=== PATIENT | male | born 1980 | race Caucasian/White ===

== ENCOUNTER 2020-03-10 13:33 | Emergency (ER) | payer OTHER ==
[~2020-03-10] VITALS: Ht 177.8 cm; Wt 84.4 kg
--- NOTE | 2020-03-10 13:57 | NUR ---
PT IS IN ROOM #2A. DR WEBER EVALUATED THE PT.
[2020-03-10] MEDS ORDERED: LIDOCAINE 1%-EPI 1:100,000 20 ML VIAL ONE (14:13)
[2020-03-10] MEDS: LIDOCAINE 1%-EPI 1:100,000 20 ML VIAL TP ONE (14:17)
--- NOTE | 2020-03-10 16:01 | NUR ---
PT WAS D/C'd TO HOME. D/C INSTRUCTIONS GIVEN TO THE PT BY DR WEBER.
[2020-03-10 16:02] VITALS: BP 134/81
== END 2020-03-10 16:03 | disposition home or self-care (01) ==
LOC: ER 13:33
PROC: 0M943ZZ Drainage of Left Elbow Bursa and Ligament, Percutaneous Approach (ICD-10-PCS; principal; 2020-03-10)
DX: M70.22 Olecranon bursitis, left elbow (principal)
CPT/HCPCS: 20605; 36415; 73080; 82945; 83986; 84155; 87070; 87205; 99284; J3490; A4663